=== PATIENT | female | born 1995 | race Caucasian/White ===

== ENCOUNTER 2020-08-04 21:03 | Emergency (ER) | payer BC ==
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
== END 2020-08-05 01:25 | disposition home or self-care (01) ==
LOC: ERS 21:03
DX: S70.01XA Contusion of right hip, initial encounter (principal); S80.12XD Contusion of left lower leg, subsequent encounter; S80.11XD Contusion of right lower leg, subsequent encounter; Z79.899 Other long term (current) drug therapy; V89.2XXA Person injured in unspecified motor-vehicle accident, traffic, initial encounter
CPT/HCPCS: 71046

== ENCOUNTER 2022-02-16 09:11 | Outpatient (CLI) | payer BC | END 2022-02-16 09:12 | disposition home or self-care (01) | LOC: SCSRAD 09:11 | PROVIDERS: ATTEND Student in an Organized Health Care Education/Training Program | DX: M54.50 Low back pain, unspecified (principal) | CPT/HCPCS: 72100 ==

== ENCOUNTER 2022-05-05 04:16 | Emergency (ER) | payer BC ==
[2022-05-05] MEDS ORDERED: diphenhydrAMINE 25 MG CAP ONE (05:26)
[2022-05-05] MEDS ORDERED: Ondansetron ODT 4 MG TAB ONE (05:26)
[2022-05-05] MEDS ORDERED: Ibuprofen 200 MG TAB ONE (05:26)
[2022-05-05] MEDS ORDERED: Metoclopramide HCl 10 MG/2 ML VIAL ONE (05:26)
[2022-05-05] MEDS ORDERED: Metoclopramide HCl 10 MG TAB ONE (05:29)
== END 2022-05-05 06:02 | disposition home or self-care (01) ==
LOC: ERS 04:16
DX: G43.909 Migraine, unspecified, not intractable, without status migrainosus (principal)
CPT/HCPCS: 99283; J2765; Q0162